=== PATIENT | female | born 1990 | race Caucasian/White ===

== ENCOUNTER 2023-05-24 15:13 | Emergency (ER) | payer OTHER ==
[2023-05-24 15:43] VITALS: RESP 16; TEMP 97.7
[2023-05-24] MEDS: KETOROLAC 15 MG/ML 1 ML VIAL IM STA (15:48)
--- NOTE | 2023-05-24 15:49 | ED ---
Lower Extremity Injury HPI - General Chief Complaint: Extremity Injury, Lower Stated Complaint: knee/leg injury Time Seen by Provider: 05/24/23 15:25 Source: patient, family Mode of arrival: ambulatory Limitations: no limitations - History of Present Illness Initial Comments: Patient is a 33-year-old female presented to ER with a chief complaint of left hip and knee pain. Patient was sent here by [facility] for further evaluation. On 05-17-2023 patient was moving a bariatric patient at work and felt a pop in her left knee. Patient also states she felt a shooting pain up to her left hip. Patient states she was seen at [facility] and received imaging which was all negative. Patient followed up with orthopedics and they advised a MRI of her left knee as a believe it is a meniscus injury. They also sent her here with concern of a lumbar spine injury. Patient is reporting left mcdowell and foot numbness. Denies decreased weakness but states walking makes her pain worse. - Related Data Home Medications Medication Instructions Recorded Confirmed Cyanocobalamin [Vitamin B-12] 500 mcg PO DAILY 09/28/13 09/28/13 Escitalopram [Lexapro] 20 mg PO DAILY 09/28/13 09/28/13 Allergies Allergy/AdvReac Type Severity Reaction Status Date / Time codeine Allergy Unknown Verified 09/28/13 15:57 morphine Allergy Swelling Verified 05/24/23 15:20 Sulfa (Sulfonamide Allergy Anaphylaxis Verified 05/24/23 15:20 Antibiotics) tramadol HCl [From Ultram] Allergy Unknown Verified 09/28/13 15:57 Review of Systems ROS Statement: Those systems with pertinent positive or pertinent negative responses have been documented in the HPI. ROS Other: All systems not noted in ROS Statement are negative. Past Medical History Past Medical History: Asthma History of Any Multi-Drug Resistant Organisms: None Reported Past Surgical History: Orthopedic Surgery, Tubal Ligation Past Psychological History: Anxiety, Depression, PTSD Past Alcohol Use History: Occasional Past Drug Use History: None Reported General Exam Limitations: no limitations General appearance: alert, in no apparent distress Head exam: Present: atraumatic, normocephalic, normal inspection Respiratory exam: Present: normal lung sounds bilaterally. Absent: respiratory distress, wheezes, rales, rhonchi, stridor Cardiovascular Exam: Present: regular rate, normal rhythm, normal heart sounds. Absent: systolic murmur, diastolic murmur, rubs, gallop, clicks Extremities exam: Present: normal inspection, tenderness (Medial and lateral knee joint line. 2+ left dorsalis pedis pulse. Active range of motion limited by pain. Mild pain to left pelvic girdle. Limited sensation of left great toe) Neurological exam: Present: alert, oriented X3, CN II-XII intact Psychiatric exam: Present: normal affect, normal mood Skin exam: Present: warm, dry, intact, normal color. Absent: rash Course Vital Signs 05/24/23 05/24/23 15:14 17:18 Temperature 97.7 F 97.7 F Pulse Rate 71 70 Respiratory 16 16 Rate Blood Pressure 122/73 120/78 O2 Sat by Pulse 99 99 Oximetry Medical Decision Making - Medical Decision Making Was pt. sent in by a medical professional or institution (, PA, DIRECTOR OF GROUP SALES, urgent care, hospital, or long-term...) When possible be specific @ -Patient sent here by [facility] for CT of lumbar spine. Did you speak to anyone other than the patient for history (EMS, parent, family, police, friend...)? What history was obtained from this source @ - providing past medical history. Did you review nursing and triage notes (agree or disagree)? Why? @ -I reviewed and agree with nursing and triage notes Were old charts reviewed (outside hosp., previous admission, EMS record, old EKG, old radiological studies, urgent care reports/EKG's, long-term records)? Report findings @ -Yes I reviewed ER visit note from [facility] on 05/19/23. Left knee x-ray shows no acute process. Left hip x-ray with AP pelvis shows no acute findings. Differential Diagnosis (chest pain, altered mental status, abdominal pain women, abdominal pain men, vaginal bleeding, weakness, fever, dyspnea, syncope, headache, dizziness, GI bleed, back pain, seizure, CVA, palpatations, mental health, musculoskeletal)? @ -Differential Musculoskeletal Muscular strain, contusion, ligament sprain, fracture, arthritis, septic arthritis, bursitis, cellulitis, muscle spasm, nerve compression, DVT, arterial occlusion, herpes zoster, electrolyte abnormality, tumor.... This is not meant to be in all inclusive list EKG interpreted by me (3pts min.). @ -None X-rays interpreted by me (1pt min.). @ -None done CT interpreted by me (1pt min.). @ -CT lumbar spine shows no acute process. U/S interpreted by me (1pt. min.). @ -None done What testing was considered but not performed or refused? (CT, X-rays, U/S, labs)? Why? @ -None What meds were considered but not given or refused? Why? @ -None Did you discuss the management of the patient with other professionals (professionals i.e. , PA, DIRECTOR OF GROUP SALES, lab, RT, psych nurse, social worker school, attorney at law, teacher, environmental health officer, business case analyst)? Give summary @ -No Was smoking cessation discussed for >3mins.? @ -No Was critical care preformed (if so, how long)? @ -No Were there social determinants of health that impacted care today? How? (Homele ssness, low income, unemployed, alcoholism, drug addiction, transportation, low edu. Level, literacy, decrease access to med. care, assisted, rehab)? @ -History of drug addiction Was there de-escalation of care discussed even if they declined (Discuss DNR or withdrawal of care, Hospice)? DNR status @ -No What co-morbidities impacted this encounter? (DM, HTN, Smoking, COPD, CAD, Cancer, CVA, ARF, Chemo, Hep., AIDS, mental health diagnosis, sleep apnea, morbid obesity)? @ -None Was patient admitted / discharged? Hospital course, mention meds given and route, prescriptions, significant lab abnormalities, going to OR and other pertinent info. @ -Discharge. Patient is a 33-year-old female presenting to the ER with chief complaint of left hip and knee pain. Patient has been following up with workman comp and orthopedics for similar complaint. Patient was sent here for CT scan of lumbar spine with concern of lumbar spine pathology. I reviewed ER visit note from [facility] on 05/19/23. Left knee x-ray shows no acute process. Left hip x-ray with AP pelvis shows no acute findings. History and physical exam were completed. Vitals stable. No red flag back pain symptoms indicative of cauda equina syndrome. Patient's left lower extremity neurovascularly intact. Patient in no signs of acute distress. CT lumbar spine shows no acute process. Patient did receive IM Toradol with mild improvement of her pain. I discussed imaging findings with patient, all questions answered. Advised her to continue with [id number] analgesics for pain control. Patient refused narcotic medications due to previous dependence. Return parameters were discussed. Advised her to follow-up with orthopedics and [employer]. as scheduled. Patient discharged in stable condition. Patient expressed understanding and agreement with care plan. Undiagnosed new problem with uncertain prognosis? @ -No Drug Therapy requiring intensive monitoring for toxicity (Heparin, Nitro, I nsulin, Cardizem)? @ -No Were any procedures done? @ -No Diagnosis/symptom? @ -Left hip pain/left knee pain Acute, or Chronic, or Acute on Chronic? @ -Acute Uncomplicated (without systemic symptoms) or Complicated (systemic symptoms)? @ -Uncomplicated Side effects of treatment? @ -No Exacerbation, Progression, or Severe Exacerbation? @ -No Poses a threat to life or bodily function? How? (Chest pain, [place], [place], pneumonia, PE, COPD, DKA, ARF, appy, cholecystitis, CVA, Diverticulitis, Homicidal, Suicidal, threat to staff... and all critical care pts) @ -No - Radiology Data Radiology results: report reviewed, image reviewed Disposition Clinical Impression: Knee pain, Hip pain Disposition: HOME SELF-CARE Condition: Stable Instructions (If sedation given, give patient instructions): Knee Pain (ED) Additional Instructions: Please follow-up with orthopedics as scheduled. Return to ER for any new or worsening symptoms. Is patient prescribed a controlled substance at d/c from ED?: No Referrals: Marli Perry NPC [Family Provider] - 1-2 days Time of Disposition: 17:00
--- NOTE | 2023-05-24 16:36 | CT ---
EXAMINATION TYPE: CT lumbar spine wo con CT DLP: 716.9 mGycm, Automated exposure control for dose reduction was used. DATE OF EXAM: 05/24/2023 4:21 PM COMPARISON: MR 06/24/2015.. CLINICAL INDICATION:Female, 33 years old with history of injury with paresthesias left lower extremit y; PHH, c/o numbness in left lower leg after knee injury. TECHNIQUE: Multiple axial images were obtained from the midportion of T11 through the sacroiliac dorene nts. Soft tissue and bone windows in coronal and sagittal planes were obtained and reviewed. Contrast used: mL of , (None, if empty). Oral contrast used: (None, if empty). FINDINGS: Alignment: There are 5 lumbar type vertebral bodies within normal alignment. Bone: No evidence of fracture is identified. Mild facet joint arthropathy present. Discs: T12-L1: No spinal canal or neural foraminal stenosis is identified. L1-L2: No spinal canal or neural foraminal stenosis is identified. L2-L3: No spinal canal or neural foraminal stenosis is identified. L3-L4: No spinal canal or neural foraminal stenosis is identified. L4-L5: No spinal canal or neural foraminal stenosis is identified. L5-S1: No spinal canal or neural foraminal stenosis is identified. Other: Gallstone in the gallbladder lumen. IMPRESSION: 1. No evidence for spinal fracture. 2. No evidence for significant spinal canal or neural foraminal stenosis.
[2023-05-24 17:35] VITALS: BP 120/78; PULSE 70
== END 2023-05-24 17:19 | disposition home or self-care (01) ==
LOC: EC 15:13
DX: S79.912A Unspecified injury of left hip, initial encounter (principal); S89.92XA Unspecified injury of left lower leg, initial encounter; J45.909 Unspecified asthma, uncomplicated; F32.A Depression, unspecified; F41.9 Anxiety disorder, unspecified; Z79.899 Other long term (current) drug therapy; Z88.2 Allergy status to sulfonamides; Z88.5 Allergy status to narcotic agent; X50.9XXA Other and unspecified overexertion or strenuous movements or postures, initial encounter; W19.XXXA Unspecified fall, initial encounter; Y99.0 Civilian activity done for income or pay
CPT/HCPCS: 99284 ×2; 96372 ×2; 72131; J1885